=== PATIENT | male | born 1955 | race Caucasian/White ===

== ENCOUNTER 2022-01-31 11:40 | Outpatient (REF) | payer OTHER, SELFPAY ==
[2022-01-31 12:11] LABS: COVID-19 Test Negative (Negative)
== END 2022-01-31 11:41 | disposition home or self-care (01) ==
LOC: HO.LAB 11:40
PROVIDERS: Visit Provider Internal Medicine
DX: Z20.822 Contact with and (suspected) exposure to COVID-19 (principal)
CPT/HCPCS: 87635; C9803